=== PATIENT | female | born 1955 | race Caucasian/White ===

== ENCOUNTER 2023-06-13 14:31 | Outpatient (CLI) | payer MEDICARE, BC ==
--- NOTE | 2023-06-13 19:27 | XRAY Report ---
PROCEDURE: Foot 3 View RT INDICATIONS: RT FOOT PAIN TECHNIQUE: 3 views of the foot were obtained. COMPARISON: None FINDINGS: Bones: No fractures or dislocations. No suspicious bony lesions. There is loss of the longitudinal arch. Mild medial angulation of the first metatarsal noted. Soft tissues: Unremarkable. No radiopaque foreign body. IMPRESSION: Mild hallux valgus and pes planus Reviewed by: Cristi Balderas MD on 06/13/2023 6:25 PM AKDT Approved by: Cristi Balderas MD on 06/13/2023 6:25 PM AKDT Station ID: [id number]
== END 2023-06-13 14:32 | disposition home or self-care (01) ==
LOC: DI 14:31
PROVIDERS: ATTEND Podiatrist
DX: M79.671 Pain in right foot (principal); M20.11 Hallux valgus (acquired), right foot; M21.41 Flat foot [pes planus] (acquired), right foot